=== PATIENT | female | born 1975 | race Caucasian/White ===

== ENCOUNTER 2018-11-29 20:38 | Emergency (ER) | payer BC ==
[2018-11-29] MEDS ORDERED: 0.9 % SODIUM CHLORIDE 1,000 ML BAG IV ONE (21:03)
[2018-11-29] MEDS ORDERED: KETOROLAC 30 MG/ML VIAL IVP ONE (21:03)
[2018-11-29] MEDS ORDERED: DIPHENHYDRAMINE HCL 50 MG/ML VIAL IVP ONE (21:03)
[2018-11-29] MEDS ORDERED: METOCLOPRAMIDE HCL 10 MG/2 ML VIAL IVP ONE (21:03)
--- NOTE | 2018-11-29 21:05 | Emergency Department Record ---
History of Present Illness - General Chief Complaint: Headache Migraine Stated Complaint: MIGRAINE Time Seen by Provider: 11/29/18 20:45 Source: Patient Mode of Arrival: Ambulatory - History of Present Illness Initial Comments: The patient has a history of recurring migraine headaches usually controlled with excedrin migraine and imetrex. This current headache has been low grade for 3-4 days. Today it gradually increased into a full blown mirgraine around noon. She took 7 excedrin migraine pills, and an imetrex with no relief. She went to her usual emergency department which was on diversion, so she came here. nHer headache is bitemporal, andis associated with photophobia, nausea, and photophonia. This is her typical migraine for her. She denies other symptoms such as fevers, chills, stiff neck, rashes, unilateral weakness, altered speech or other complaints. Onset/Timin -: Hour(s) Onset Description: Gradual Location: Left, Right, Temporal Severity scale (1-10): 8 Quality: Aching, Similar to previous headaches Consistency: Constant, Getting worse Improves With: Nothing Worsens With: Light, Noise Associated Symptoms: Photophobia Treatments Prior to Arrival: Migraine medication - Related Data Home Medications Medication Instructions Recorded Confirmed Last Taken Bupropion HCl [Wellbutrin Xl] 300 mg PO DAILY 11/29/18 11/29/18 11/29/18 Dextroamphetamine/Amphetamine 40 mg PO DAILY 11/29/18 11/29/18 11/29/18 [Adderall Xr 20 mg Capsule] Rivaroxaban [Xarelto] 20 mg PO DAILY 11/29/18 11/29/18 11/29/18 Sumatriptan Succinate [Imitrex] 10 mg PO DAILY PRN 11/29/18 11/29/18 11/29/18 Triamterene/Hydrochlorothiazid 1 each PO DAILY 11/29/18 11/29/18 11/29/18 [Dyazide 37.5-25 Capsule] Allergies Allergy/AdvReac Type Severity Reaction Status Date / Time nitrofurantoin Allergy HIVES Verified 11/29/18 20:48 [From Macrobid] Travel Screening - Travel/Exposure Within Last 30 Days Have you traveled within the last 30 days?: No Review of Systems Reviewed: No additional complaints except as noted below Constitutional: Reports: As per HPI. Denies: Chills, Fever, Malaise, Night sweats, Weakness, Weight change Eyes: Reports: As per HPI. Denies: Eye discharge, Eye pain, Photophobia, Vision change ENT: Reports: As per HPI. Denies: Congestion, Dental pain, Ear pain, Epistaxis, Hearing loss, Throat pain Respiratory: Reports: As per HPI. Denies: Cough, Dyspnea, Hemoptysis, Stridor, Wheezes Cardiovascular: Reports: As per HPI. Denies: Arrhythmia, Chest pain, Dyspnea on exertion, Edema, Murmurs, Orthopnea, Palpitations, Paroxysmal nocturnal dyspnea, Rheumatic Fever, Syncope Endocrine: Reports: As per HPI. Denies: Fatigue, Heat or cold intolerance, Polydipsia, Polyuria Gastrointestinal: Reports: As per HPI. Denies: Abdominal pain, Constipation, Diarrhea, Hematemesis, Hematochezia, Melena, Nausea, Vomiting Genitourinary: Reports: As per HPI. Denies: Abnormal menses, Discharge, Dyspareunia, Dysuria, Frequency, Hematuria, Incontinence, Retention, Urgency Musculoskeletal: Reports: As per HPI. Denies: Arthralgia, Back pain, Gout, Join t swelling, Myalgia, Neck pain Skin: Reports: As per HPI. Denies: Bruising, Change in color, Change in hair/nails, Lesions, Pruritus, Rash Neurological: Reports: As per HPI. Denies: Abnormal gait, Confusion, Headache, Numbness, Paresthesias, Seizure, Tingling, Tremors, Vertigo, Weakness Psychiatric: Reports: As per HPI. Denies: Anxiety, Auditory hallucinations, Depression, Homicidal thoughts, Suicidal thoughts, Visual hallucinations Hematological/Lymphatic: Reports: As per HPI. Denies: Anemia, Blood Clots, Easy bleeding, Easy bruising, Swollen glands Past Medical History - SOCIAL HISTORY Smoking Status: Never smoker Alcohol Use: Occasional Drug Use: Occasional - RESPIRATORY Hx Respiratory Disorders: No - CARDIOVASCULAR Hx Cardio Disorders: No - NEURO Hx Neuro Disorders: Yes Hx Headaches: Yes (migraines) - GI Hx GI Disorders: No Comment:: portal vein thrombosis - Hx Genitourinary Disorders: No - ENDOCRINE Hx Endocrine Disorders: No - MUSCULOSKELETAL Hx Musculoskeletal Disorders: No - PSYCH Hx Psych Problems: Yes Hx Anxiety: Yes - HEMATOLOGY/ONCOLOGY Hx Hematology/Oncology Disorders: Yes Hx Clotting Problems: Yes (portal vein thrombosis) Family Medical History Any Significant Family History?: Yes Family Hx Comment (NOT TO BE USED IN PLACE OF ITEMS BELOW): Father-DVT Hx Cancer: Grandparents Hx Stroke: Grandparents Physical Exam - General General Appearance: Alert, Oriented x3, Cooperative, Moderate distress, Other (laying in dark room wearing sunglasses, conversive with a quiet voice) - Head Head exam: Normal inspection - Eye Eye exam: Normal appearance, PERRL Pupils: Normal accommodation - ENT ENT exam: Normal exam, Mucous membranes dry, Normal external ear exam, Normal orophraynx, TM's normal bilaterally Ear exam: Normal external inspection. negative: External canal tenderness Nasal Exam: Normal inspection. negative: Discharge, Sinus tenderness Mouth exam: Normal external inspection, Tongue normal Teeth exam: Normal inspection. negative: Dental caries Throat exam: Normal inspection. negative: Tonsillar erythema, Tonsillar exudate - Neck Neck exam: Normal inspection, Full ROM, Other (neck supple). negative: Lymphadenopathy, Meningismus, Tenderness - Respiratory Respiratory exam: Normal lung sounds bilaterally. negative: Respiratory distress - Cardiovascular Cardiovascular Exam: Regular rate, Normal rhythm, Normal heart sounds - GI/Abdominal GI/Abdominal exam: Soft, Normal bowel sounds. negative: Tenderness - Rectal Rectal exam: Deferred - exam: Deferred - Extremities Extremities exam: Normal inspection, Full ROM, Normal capillary refill. negative: Calf tenderness, Pedal edema, Tenderness - Back Back exam: Reports: Normal inspection, Full ROM. Denies: Muscle spasm, Rash noted, Tenderness - Neurological Neurological exam: Alert, CN II-XII intact, Normal gait, Oriented X3, Reflexes normal. negative: Altered, Motor sensory deficit - Psychiatric Psychiatric exam: Normal affect, Normal mood - Skin Skin exam: Dry, Intact, Normal color, Warm Course Vital Signs 11/29/18 20:43 Temperature 97.5 F L Pulse Rate 71 Respiratory 18 Rate Blood Pressure 175/110 Pulse Ox 99 - Reevaluation(s) Reevaluation #1: 11/29/18 21:55 Medications and fluids infusing. Reevaluation #2: 11/29/18 22:16 IV infiltrated after medications infused and 150ccNS completed. Her left arm is swollen and a warm blanket pressure cover was applied.Patient states, however, that her headache is much improved and she is ready to be discharged home nonetheless. Her headache initially was 9/10 and now is 4.5/10. She will orally hydrate and go home to sleep. 11/29/18 22:20 Medical Decision Making - Management Options MDM Management: No Additional Work-up Planned Disposition Disposition: Discharge Clinical Impression: Migraine headache Qualifiers: Migraine type: without aura Status migrainosus presence: without status migrainosus Intractability: not intractable Qualified Code(s): G43.009 - Migraine without aura, not intractable, without status migrainosus Intravenous infiltration Qualifiers: Encounter type: initial encounter Qualified Code(s): T80.1XXA - Vascular complications following infusion, transfusion and therapeutic injection, initial encounter Disposition: Home, Self-Care Condition: (1) Good Instructions: Migraine Headache (ED) Additional Instructions: Home to bed. Do not drive tonight. Continue present medications. Follow up with PCP as needed. Ice/heat to infiltrated site as needed. The area may bruise. Forms: Patient Portal Access Quality - Quality Measures Quality Measures: Headache (All Ages) - Headache: Neuroimaging Quality Measure: Measure #419: Overuse of Neuroimaging ICD10 Codes Entered: Yes Neurological Exam: Patient had a normal neurological exam. [G9535] Headache: Use of Neuroimaging: < CTA, CT, MRA or MRI was NOT ordered > [G9534] Medical Reason for Exam: Other - Blood Pressure Screening Does Patient Have Any of the Following: No Blood Pressure Classification: Hypertensive Reading Systolic Measurement: 175 Diastolic Measurement: 110 Screening for High Blood Pressure: < Normal BP, F/U Not Required > [G8783]
== END 2018-11-29 22:23 | disposition home or self-care (01) ==
LOC: ER 20:38
DX: G43.009 Migraine without aura, not intractable, without status migrainosus (principal); T80.1XXA Vascular complications following infusion, transfusion and therapeutic injection, initial encounter; H53.149 Visual discomfort, unspecified; R11.0 Nausea; Y82.8 Other medical devices associated with adverse incidents; Y92.230 Patient room in hospital as the place of occurrence of the external cause
CPT/HCPCS: 99284 ×2; 96374; 96375; J1885; J1200; J2765

== ENCOUNTER 2018-12-06 16:57 | Emergency (ER) | payer BC ==
[2018-12-06] MEDS ORDERED: DIPHENHYDRAMINE HCL 50 MG/ML VIAL IVP ONE (17:23)
[2018-12-06] MEDS ORDERED: KETOROLAC 30 MG/ML VIAL IVP ONE (17:23)
--- NOTE | 2018-12-06 17:25 | Emergency Department Record ---
History of Present Illness - General Chief Complaint: Headache Migraine Stated Complaint: MIGRAINE Time Seen by Provider: 12/06/18 17:20 Source: Patient Mode of Arrival: Ambulatory Limitations: No limitations - History of Present Illness Initial Comments: Pt with hx migraine presents with CALDERÓN. Took Imitrex 25 mg twice today without relief. CALDERÓN is frontal with mild nausea. Not worst of life. No fever. No weakness. Onset/Timin -: Days(s) Severity: Moderate Severity scale (1-10): 8 Quality: Aching Consistency: Intermittent Improves With: Nothing Worsens With: None Treatments Prior to Arrival: Migraine medication - Related Data Allergies Allergy/AdvReac Type Severity Reaction Status Date / Time nitrofurantoin Allergy HIVES Verified 11/29/18 20:48 [From Macrobid] Travel Screening - Travel/Exposure Within Last 30 Days Have you traveled within the last 30 days?: No Review of Systems Constitutional: Denies: Chills, Fever Eyes: Reports: Photophobia. Denies: Eye discharge ENT: Denies: Congestion, Throat pain Respiratory: Denies: Cough Cardiovascular: Denies: Arrhythmia, Syncope Endocrine: Denies: Fatigue Gastrointestinal: Reports: Nausea. Denies: Abdominal pain Musculoskeletal: Denies: Arthralgia Neurological: Reports: As per HPI, Headache. Denies: Abnormal gait Psychiatric: Denies: Anxiety Past Medical History - SOCIAL HISTORY Smoking Status: Never smoker Alcohol Use: Occasional Drug Use: None - RESPIRATORY Hx Respiratory Disorders: No - CARDIOVASCULAR Hx Cardio Disorders: No - NEURO Hx Neuro Disorders: Yes Hx Headaches: Yes (migraines) - GI Hx GI Disorders: No Comment:: portal vein thrombosis - Hx Genitourinary Disorders: No - ENDOCRINE Hx Endocrine Disorders: No - MUSCULOSKELETAL Hx Musculoskeletal Disorders: No - PSYCH Hx Psych Problems: Yes Hx Anxiety: Yes - HEMATOLOGY/ONCOLOGY Hx Hematology/Oncology Disorders: Yes Hx Clotting Problems: Yes (portal vein thrombosis) Family Medical History Any Significant Family History?: Yes Family Hx Comment (NOT TO BE USED IN PLACE OF ITEMS BELOW): Father-DVT Hx Cancer: Grandparents Hx Stroke: Grandparents Physical Exam - General General Appearance: Alert, Oriented x3, Cooperative, No acute distress - Head Head exam: Normal inspection - Eye Eye exam: Normal appearance, PERRL - ENT ENT exam: Normal exam, Mucous membranes moist, Normal external ear exam, Normal orophraynx, TM's normal bilaterally - Neck Neck exam: Normal inspection, Full ROM. negative: Tenderness - Respiratory Respiratory exam: Normal lung sounds bilaterally. negative: Respiratory distress - Cardiovascular Cardiovascular Exam: Regular rate, Normal rhythm, Normal heart sounds - GI/Abdominal GI/Abdominal exam: Soft, Normal bowel sounds. negative: Tenderness - Extremities Extremities exam: Normal inspection - Back Back exam: Reports: Normal inspection - Neurological Neurological exam: Alert, Normal gait, Oriented X3. negative: Motor sensory deficit - Psychiatric Psychiatric exam: Normal affect, Normal mood - Skin Skin exam: Normal color. negative: Rash Course Vital Signs 12/06/18 17:12 Temperature 97.8 F Pulse Rate 71 Respiratory 12 Rate Blood Pressure 147/96 Pulse Ox 99 - Reevaluation(s) Reevaluation #1: 12/06/18 18:31 Much improved with IV meds. CALDERÓN gone. Discussed plan and pt and agree. Home Disposition Disposition: Discharge Clinical Impression: Migraine Qualifiers: Migraine type: with aura Status migrainosus presence: without status migrainosus Intractability: not intractable Qualified Code(s): G43.109 - Migraine with aura, not intractable, without status migrainosus Disposition: Home, Self-Care Condition: (1) Good Instructions: Migraine Headache (ED) Additional Instructions: See you family doctor for discussion of Migraine treatments. Possible Neuro eval in office. Return to the ED at any time. Forms: Patient Portal Access Time of Disposition: 18:32 Quality - Quality Measures Quality Measures: N/A, Headache (All Ages) - Headache: Neuroimaging Quality Measure: Measure #419: Overuse of Neuroimaging ICD10 Codes Entered: Yes Neurological Exam: Patient had a normal neurological exam. [G9535] Headache: Use of Neuroimaging: < CTA, CT, MRA or MRI was NOT ordered > [G9534] - Blood Pressure Screening Does Patient Have Any of the Following: No Blood Pressure Classification: Hypertensive Reading Systolic Measurement: 147 Diastolic Measurement: 96 Screening for High Blood Pressure: < Pre-Hypertensive BP, F/U Documented > [G8950] Pre-Hypertensive Follow-up Interventions: Follow-up with rescreen every year.
== END 2018-12-06 18:45 | disposition home or self-care (01) ==
LOC: ER 16:57
DX: G43.909 Migraine, unspecified, not intractable, without status migrainosus (principal); R11.0 Nausea
CPT/HCPCS: 96374; 96375; 99283; J1200; J1885

== ENCOUNTER 2019-01-28 19:53 | Emergency (ER) | payer BC ==
[2019-01-28] MEDS ORDERED: 0.9 % SODIUM CHLORIDE 1,000 ML BAG IV ONE (20:32)
[2019-01-28 21:00] LABS: ABSOLUTE NEUTROPHIL COUNT 6.77; BASO % 1.1 % (0-6); EOS % 1.9 % (0-6); GRAN % 59.2 % (47-80); HEMATOCRIT 36.3 % (35.0-47.0); HEMOGLOBIN 12.1 gm/dl (11.6-16.0); MEAN CELL VOLUME 81.4 fl (81-97); MEAN CORPUSCULAR HEMOGLOBIN 27.1 pg (27-33); MEAN CORPUSCULAR HGB CONC 33.3 g/dl (32-36); MEAN PLATELET VOLUME 9.5 fl (7.4-10.4); MONO % 10.8 % (0-9); RED BLOOD COUNT 4.46 M/uL (3.80-5.40); RED CELL DISTRIBUTION WIDTH 15.6 % (11.5-14.5); WHITE BLOOD COUNT W/O DIFF 11.4 K/uL (4.2-12.2)
[2019-01-28 21:05] LABS: URINE APPEARANCE CLEAR; URINE BILIRUBIN NEGATIVE (NEGATIVE); URINE BLOOD NEGATIVE (NEGATIVE); URINE COLOR YELLOW; URINE GLUCOSE (UA) NEGATIVE (NEGATIVE); URINE KETONE NEGATIVE (NEGATIVE); URINE LEUKOCYTE ESTERASE NEGATIVE (NEGATIVE); URINE NITRITE NEGATIVE (NEGATIVE); URINE PROTEIN NEGATIVE (NEGATIVE)
[2019-01-28 21:14] LABS: BLOOD UREA NITROGEN 23 mg/dL (6-20); CREATININE 0.9 mg/dL (0.5-0.9); EST GLOMERULAR FILTRATION RATE > 60 mL/min; LIPASE 59 U/L (13-60); TOTAL PROTEIN 6.9 g/dL (6.6-8.7)
[2019-01-28 21:16] LABS: GLUCOSE,RANDOM 94 mg/dL (74-109)
[2019-01-28 21:19] LABS: ALB/GLOB RATIO 1.4 (1.1-1.8); ALKALINE PHOSPHATASE 100 U/L (35-104); ALT/SGPT 12 U/L (<33); AST/SGOT 15 U/L (10.0-35.0)
[2019-01-28 21:21] LABS: PLATELET COUNT 679 K/uL (130-400)
[2019-01-28] MEDS ORDERED: POTASSIUM CHLORIDE 20 MEQ TABLET PO ONE (21:54)
--- NOTE | 2019-01-28 22:02 | Emergency Department Record ---
History of Present Illness - General Chief Complaint: Abdominal Pain Stated Complaint: BLOATING/L SIDE PAIN/CONSTIPATION Time Seen by Provider: 01/28/19 20:25 Source: Patient Mode of Arrival: Ambulatory Limitations: No limitations - History of Present Illness Initial Comments: pt has not had a bm in 14 days. she has abd pain in the llq. she has no n/v/d MD Complaint: Abdominal pain Onset/Timin -: Days(s) Location: LLQ Radiation: None Severity scale (1-10): 3 Quality: Cramping, Fullness Improves With: Movement Worsens With: Nothing Associated Symptoms: Constipation - Related Data Patient : No Home Medications Medication Instructions Recorded Confirmed Last Taken Butalbital/Aspirin/Caffeine 1 - 2 cap PO ASDIR PRN 01/28/19 01/28/19 2 Days Ago [Fiorinal 50-325-40 mg Capsule] ~01/26/19 Allergies Allergy/AdvReac Type Severity Reaction Status Date / Time nitrofurantoin Allergy HIVES Verified 01/28/19 20:20 [From Macrobid] Travel Screening - Travel/Exposure Within Last 30 Days Have you traveled within the last 30 days?: No - Travel/Exposure Within Last Year Have you traveled outside the [place] in the last year?: No - Additonal Travel Details Have you been exposed to anyone with a communicable illness?: No - Travel Symptoms Symptom Screening: None Review of Systems Reviewed: No additional complaints except as noted below Constitutional: Reports: As per HPI. Denies: Chills, Fever, Malaise, Night sweats, Weakness, Weight change Eyes: Reports: As per HPI. Denies: Eye discharge, Eye pain, Photophobia, Vision change ENT: Reports: As per HPI. Denies: Congestion, Dental pain, Ear pain, Epistaxis, Hearing loss, Throat pain Respiratory: Reports: As per HPI. Denies: Cough, Dyspnea, Hemoptysis, Stridor, Wheezes Cardiovascular: Reports: As per HPI. Denies: Arrhythmia, Chest pain, Dyspnea on exertion, Edema, Murmurs, Orthopnea, Palpitations, Paroxysmal nocturnal dyspnea, Rheumatic Fever, Syncope Endocrine: Reports: As per HPI. Denies: Fatigue, Heat or cold intolerance, Polydipsia, Polyuria Gastrointestinal: Reports: As per HPI, Abdominal pain, Constipation. Denies: Diarrhea, Hematemesis, Hematochezia, Melena, Nausea, Vomiting Genitourinary: Reports: As per HPI. Denies: Abnormal menses, Discharge, Dyspareunia, Dysuria, Frequency, Hematuria, Incontinence, Retention, Urgency Musculoskeletal: Reports: As per HPI. Denies: Arthralgia, Back pain, Gout, Joint swelling, Myalgia, Neck pain Skin: Reports: As per HPI. Denies: Bruising, Change in color, Change in hair/nails, Lesions, Pruritus, Rash Neurological: Reports: As per HPI. Denies: Abnormal gait, Confusion, Headache, Numbness, Paresthesias, Seizure, Tingling, Tremors, Vertigo, Weakness Psychiatric: Reports: As per HPI. Denies: Anxiety, Auditory hallucinations, Depression, Homicidal thoughts, Suicidal thoughts, Visual hallucinations Hematological/Lymphatic: Reports: As per HPI. Denies: Anemia, Blood Clots, Easy bleeding, Easy bruising, Swollen glands Past Medical History - SOCIAL HISTORY Smoking Status: Never smoker Alcohol Use: Occasional Drug Use: None - RESPIRATORY Hx Respiratory Disorders: No - CARDIOVASCULAR Hx Cardio Disorders: No - NEURO Hx Neuro Disorders: Yes Hx Headaches: Yes (migraines) - GI Hx GI Disorders: No Hx Wt Loss/Wt Gain: Yes (gastric sleeve) Comment:: portal vein thrombosis - Hx Genitourinary Disorders: No - ENDOCRINE Hx Endocrine Disorders: No - MUSCULOSKELETAL Hx Musculoskeletal Disorders: No - PSYCH Hx Psych Problems: Yes Hx Anxiety: Yes Hx Depression: Yes - HEMATOLOGY/ONCOLOGY Hx Hematology/Oncology Disorders: Yes Hx Clotting Problems: Yes (portal vein thrombosis) Family Medical History Any Significant Family History?: Yes Family Hx Comment (NOT TO BE USED IN PLACE OF ITEMS BELOW): Father-DVT Hx Cancer: Grandparents Hx Diabetes: Father Hx Stroke: Grandparents Physical Exam - General General Appearance: Alert, Oriented x3, Cooperative, Mild distress - Head Head exam: Normal inspection - Eye Eye exam: Normal appearance, PERRL, EOMI Pupils: Normal accommodation - ENT ENT exam: Normal exam, Mucous membranes moist, Normal external ear exam, Normal orophraynx Ear exam: Normal external inspection. negative: External canal tenderness Nasal Exam: Normal inspection. negative: Discharge, Sinus tenderness Mouth exam: Normal external inspection, Tongue normal Teeth exam: Normal inspection. negative: Dental caries Throat exam: Normal inspection. negative: Tonsillar erythema, Tonsillar exudate - Neck Neck exam: Normal inspection, Full ROM. negative: Tenderness - Respiratory Respiratory exam: Normal lung sounds bilaterally. negative: Respiratory distress - Cardiovascular Cardiovascular Exam: Regular rate, Normal rhythm, Normal heart sounds - GI/Abdominal GI/Abdominal exam: Soft, Normal bowel sounds, Tenderness (llq) - Rectal Rectal exam: Deferred - exam: Deferred - Extremities Extremities exam: Normal inspection, Full ROM, Normal capillary refill. negative: Tenderness - Back Back exam: Reports: Normal inspection, Full ROM. Denies: Muscle spasm, Rash noted, Tenderness - Neurological Neurological exam: Alert, CN II-XII intact, Normal gait, Oriented X3 - Psychiatric Psychiatric exam: Normal affect, Normal mood - Skin Skin exam: Dry, Intact, Normal color, Warm Course Vital Signs 01/28/19 01/28/19 20:04 21:26 Temperature 98.2 F Pulse Rate [ 85 70 Pulse Ox Probe] Respiratory 20 16 Rate Blood Pressure 127/81 113/76 [Left Arm] Pulse Ox 100 98 - Reevaluation(s) Reevaluation #1: 01/28/19 23:40 ct shows icreased stool withdecreased amt distally. i discussed need for colonoscopy. enema produced scant results. pt given mag citrate and told need for GI follow up Medical Decision Making - Lab Data Result diagrams: 01/28/19 20:50 01/28/19 20:50 Lab Results 01/28/19 01/28/19 01/28/19 Range/Units 20:50 20:50 20:50 WBC 11.4 (4.2-12.2) K/uL RBC 4.46 (3.80-5.40) M/uL Hgb 12.1 (11.6-16.0) gm/dl Hct 36.3 (35.0-47.0) % MCV 81.4 (81-97) fl MCH 27.1 (27-33) pg MCHC 33.3 (32-36) g/dl RDW 15.6 H (11.5-14.5) % Plt Count 679 H (130-400) K/uL MPV 9.5 (7.4-10.4) fl Gran % 59.2 (47-80) % Lymphocytes % 27.0 (16-45) % Monocytes % 10.8 H (0-9) % Eosinophils % 1.9 (0-6) % Basophils % 1.1 (0-6) % Absolute Neutrophils 6.77 Sodium 138 (136-145) mmol/L Potassium 2.9 L* (3.4-4.5) mmol/L Chloride 100 (98-107) mmol/L Carbon Dioxide 27.0 (22-29) mmol/L Anion Gap 11.0 (7-16) BUN 23 H (6-20) mg/dL Creatinine 0.9 (0.5-0.9) mg/dL Estimated GFR > 60 mL/min Random Glucose 94 (74-109) mg/dL Calcium 10.4 H (8.6-10.0) mg/dL Total Bilirubin 0.40 (0.2-1.0) mg/dL AST 15 (10.0-35.0) U/L ALT 12 (<33) U/L Alkaline Phosphatase 100 (35-104) U/L Total Protein 6.9 (6.6-8.7) g/dL Albumin 4.0 (4.0-5.0) g/dL Globulin 2.9 (1.4-4.8) gm/dL Albumin/Globulin Ratio 1.4 (1.1-1.8) Lipase 59 (13-60) U/L Urine Color Yellow Urine Appearance Clear Urine pH 6.0 (5.0-8.0) Ur Specific [place] 1.025 (1.002-1.030) Urine Protein Negative (NEGATIVE) Urine Glucose (UA) Negative (NEGATIVE) Urine Ketones Negative (NEGATIVE) Urine Blood Negative (NEGATIVE) Urine Nitrite Negative (NEGATIVE) Urine Bilirubin Negative (NEGATIVE) Urine Urobilinogen 4.0 H (0.20 - 1.00) E.U./dL Ur Leukocyte Esterase Negative (NEGATIVE) Disposition Disposition: Discharge Clinical Impression: Hypokalemia Constipation Qualifiers: Constipation type: unspecified constipation type Qualified Code(s): K59.00 - Constipation, unspecified Disposition: Home, Self-Care Condition: (1) Good Instructions: Constipation (ED) Additional Instructions: follow up with family doctor and with GI doctor. return sooner if worse. drink half of prashant tonight with a glass of water then drink other half in the morning with a glass of water Forms: Patient Portal Access Quality - Quality Measures Quality Measures: N/A - Blood Pressure Screening Does Patient Have Any of the Following: No Blood Pressure Classification: Normal BP Reading Systolic Measurement: 113 Diastolic Measurement: 76 Screening for High Blood Pressure: < Normal BP, F/U Not Required > [G8721]
[2019-01-28] MEDS ORDERED: POTASSIUM CHL 20MEQ IN 1L NS 20 MEQ/1,000 ML BAG IV ONE (22:25)
[2019-01-28] MEDS ORDERED: MAGNESIUM CITRATE 296 ML BTL PO ONE (23:38)
--- NOTE | 2019-01-29 00:03 | Emergency Department Record ---
History of Present Illness - General Chief Complaint: Abdominal Pain Stated Complaint: BLOATING/L SIDE PAIN/CONSTIPATION Time Seen by Provider: 01/28/19 20:25 Source: Patient Mode of Arrival: Ambulatory Limitations: No limitations - History of Present Illness MD Complaint: Abdominal pain Onset/Timin -: Days(s) Location: LLQ Radiation: None Severity scale (1-10): 3 Quality: Cramping, Fullness Improves With: Movement Worsens With: Nothing Associated Symptoms: Constipation - Related Data Patient : No Home Medications Medication Instructions Recorded Confirmed Last Taken Butalbital/Aspirin/Caffeine 1 - 2 cap PO ASDIR PRN 01/28/19 01/28/19 2 Days Ago [Fiorinal 50-325-40 mg Capsule] ~01/26/19 Allergies Allergy/AdvReac Type Severity Reaction Status Date / Time nitrofurantoin Allergy HIVES Verified 01/28/19 20:20 [From Macrobid] Travel Screening - Travel/Exposure Within Last 30 Days Have you traveled within the last 30 days?: No - Travel/Exposure Within Last Year Have you traveled outside the [place] in the last year?: No - Additonal Travel Details Have you been exposed to anyone with a communicable illness?: No - Travel Symptoms Symptom Screening: None Review of Systems Constitutional: Reports: As per HPI. Denies: Chills, Fever, Malaise, Night sweats, Weakness, Weight change Eyes: Reports: As per HPI. Denies: Eye discharge, Eye pain, Photophobia, Vision change ENT: Reports: As per HPI. Denies: Congestion, Dental pain, Ear pain, Epistaxis, Hearing loss, Throat pain Respiratory: Reports: As per HPI. Denies: Cough, Dyspnea, Hemoptysis, Stridor, Wheezes Cardiovascular: Reports: As per HPI. Denies: Arrhythmia, Chest pain, Dyspnea on exertion, Edema, Murmurs, Orthopnea, Palpitations, Paroxysmal nocturnal dyspnea, Rheumatic Fever, Syncope Endocrine: Reports: As per HPI. Denies: Fatigue, Heat or cold intolerance, Polydipsia, Polyuria Gastrointestinal: Reports: As per HPI, Abdominal pain, Constipation. Denies: Diarrhea, Hematemesis, Hematochezia, Melena, Nausea, Vomiting Genitourinary: Reports: As per HPI. Denies: Abnormal menses, Discharge, Dyspareunia, Dysuria, Frequency, Hematuria, Incontinence, Retention, Urgency Musculoskeletal: Reports: As per HPI. Denies: Arthralgia, Back pain, Gout, Joint swelling, Myalgia, Neck pain Skin: Reports: As per HPI. Denies: Bruising, Change in color, Change in hair/nails, Lesions, Pruritus, Rash Neurological: Reports: As per HPI. Denies: Abnormal gait, Confusion, Headache, Numbness, Paresthesias, Seizure, Tingling, Tremors, Vertigo, Weakness Psychiatric: Reports: As per HPI. Denies: Anxiety, Auditory hallucinations, Depression, Homicidal thoughts, Suicidal thoughts, Visual hallucinations Hematological/Lymphatic: Reports: As per HPI. Denies: Anemia, Blood Clots, Easy bleeding, Easy bruising, Swollen glands Past Medical History - SOCIAL HISTORY Smoking Status: Never smoker Alcohol Use: Occasional Drug Use: None - RESPIRATORY Hx Respiratory Disorders: No - CARDIOVASCULAR Hx Cardio Disorders: No - NEURO Hx Neuro Disorders: Yes Hx Headaches: Yes (migraines) - GI Hx GI Disorders: No Hx Wt Loss/Wt Gain: Yes (gastric sleeve) Comment:: portal vein thrombosis - Hx Genitourinary Disorders: No - ENDOCRINE Hx Endocrine Disorders: No - MUSCULOSKELETAL Hx Musculoskeletal Disorders: No - PSYCH Hx Psych Problems: Yes Hx Anxiety: Yes Hx Depression: Yes - HEMATOLOGY/ONCOLOGY Hx Hematology/Oncology Disorders: Yes Hx Clotting Problems: Yes (portal vein thrombosis) Family Medical History Any Significant Family History?: Yes Family Hx Comment (NOT TO BE USED IN PLACE OF ITEMS BELOW): Father-DVT Hx Cancer: Grandparents Hx Diabetes: Father Hx Stroke: Grandparents Physical Exam - General Limitations: No limitations Course Vital Signs 01/28/19 01/28/19 20:04 21:26 Temperature 98.2 F Pulse Rate [ 85 70 Pulse Ox Probe] Respiratory 20 16 Rate Blood Pressure 127/81 113/76 [Left Arm] Pulse Ox 100 98 Medical Decision Making - Lab Data Result diagrams: 01/28/19 20:50 01/28/19 20:50 Lab Results 01/28/19 01/28/19 01/28/19 Range/Units 20:50 20:50 20:50 WBC 11.4 (4.2-12.2) K/uL RBC 4.46 (3.80-5.40) M/uL Hgb 12.1 (11.6-16.0) gm/dl Hct 36.3 (35.0-47.0) % MCV 81.4 (81-97) fl MCH 27.1 (27-33) pg MCHC 33.3 (32-36) g/dl RDW 15.6 H (11.5-14.5) % Plt Count 679 H (130-400) K/uL MPV 9.5 (7.4-10.4) fl Gran % 59.2 (47-80) % Lymphocytes % 27.0 (16-45) % Monocytes % 10.8 H (0-9) % Eosinophils % 1.9 (0-6) % Basophils % 1.1 (0-6) % Absolute Neutrophils 6.77 Sodium 138 (136-145) mmol/L Potassium 2.9 L* (3.4-4.5) mmol/L Chloride 100 (98-107) mmol/L Carbon Dioxide 27.0 (22-29) mmol/L Anion Gap 11.0 (7-16) BUN 23 H (6-20) mg/dL Creatinine 0.9 (0.5-0.9) mg/dL Estimated GFR > 60 mL/min Random Glucose 94 (74-109) mg/dL Calcium 10.4 H (8.6-10.0) mg/dL Total Bilirubin 0.40 (0.2-1.0) mg/dL AST 15 (10.0-35.0) U/L ALT 12 (<33) U/L Alkaline Phosphatase 100 (35-104) U/L Total Protein 6.9 (6.6-8.7) g/dL Albumin 4.0 (4.0-5.0) g/dL Globulin 2.9 (1.4-4.8) gm/dL Albumin/Globulin Ratio 1.4 (1.1-1.8) Lipase 59 (13-60) U/L Urine Color Yellow Urine Appearance Clear Urine pH 6.0 (5.0-8.0) Ur Specific [place] 1.025 (1.002-1.030) Urine Protein Negative (NEGATIVE) Urine Glucose (UA) Negative (NEGATIVE) Urine Ketones Negative (NEGATIVE) Urine Blood Negative (NEGATIVE) Urine Nitrite Negative (NEGATIVE) Urine Bilirubin Negative (NEGATIVE) Urine Urobilinogen 4.0 H (0.20 - 1.00) E.U./dL Ur Leukocyte Esterase Negative (NEGATIVE) Disposition Clinical Impression: Hypokalemia Constipation Qualifiers: Constipation type: unspecified constipation type Qualified Code(s): K59.00 - Constipation, unspecified Disposition: Home, Self-Care Condition: (1) Good Instructions: Constipation (ED) Additional Instructions: follow up with family doctor and with GI doctor. return sooner if worse. drink half of mag citrate tonight with a glass of water then drink other half in the morning with a glass of water Forms: Patient Portal Access Quality - Quality Measures Quality Measures: N/A - Blood Pressure Screening Does Patient Have Any of the Following: No Blood Pressure Classification: Normal BP Reading Systolic Measurement: 113 Diastolic Measurement: 76 Screening for High Blood Pressure: < Normal BP, F/U Not Required > [G8783]
--- NOTE | 2019-01-30 21:08 | CT SCAN REPORT ---
EXAM: CT SCAN ABDOMEN/PELVIS WO CONTRAST HISTORY: LEFT LOWER QUADRANT ABDOMINAL PAIN, CONSTIPATED. PRIOR SPLENECTOMY, CHOLECYSTECTOMY, AND GASTRIC SLEEVE. TECHNIQUE: Axial CT scan of the abdomen and pelvis performed without oral or IV contrast at the referring physician's request. COMPARISON: None. FINDINGS: Post-op changes seen along the stomach consistent with the history of prior gastric surgery. Surgical clips in the gallbladder fossa consistent with cholecystectomy and the spleen not identified consistent with the surgical history as well. There is probably a very tiny residual splenule in the left upper quadrant posteriorly containing a small amount of calcification. There has probably also been a prior anterior abdominal wall hernia repair with a metallic mesh-like density seen along the anterior abdominal wall. Single tiny nonobstructing calculus lower pole left kidney. None seen on the right. No hydronephrosis or hydroureter on either side. As such the ureters are somewhat difficult to follow in their nondilated state throughout the retroperitoneum and pelvis but no definite ureteral calculus seen on either side and no bladder calculus evident. Uterus not well seen and may be surgically absent as well and correlation with the surgical history is suggested. Evaluation of the bowel and viscera extremely limited without oral or IV contrast. Given this limitation, no definite hepatic, adrenal, pancreatic, or renal mass identified. 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 There is prominent stool seen in the colon from the level of the cecum down into the sigmoid colon. However, the majority of the sigmoid colon and the rectum have very little stool. At the point of relative transition in stool content in the colon, there is no obvious mass identified and the significance of this disparity in stool volume proximal and distal to the level of the upper sigmoid is not clear. Follow-up colonoscopy may be useful, given the history of no bowel movement in 14 days. I believe the appendix is identified of normal caliber with no appendicitis evident. Tiny umbilical hernia containing adipose tissue but no bowel. No definite free intraperitoneal air or free intraperitoneal fluid identified. Prominent facet joint arthropathy in the lower lumbar spine. Some spurring, particularly in the lower thoracic spine. IMPRESSION: 1. FAIRLY EXTENSIVE POSTOPERATIVE FINDINGS INCLUDING SPLENECTOMY, CHOLECYSTECTOMY, GASTRIC SURGERY, ANTERIOR ABDOMINAL WALL HERNIA REPAIR, AND PROBABLY ALSO HYSTERECTOMY. CORRELATION WITH THE SURGICAL HISTORY IS SUGGESTED. 2. SINGLE TINY NONOBSTRUCTING CALCULUS LEFT KIDNEY WITH NO HYDRONEPHROSIS OR URETERAL CALCULUS ON EITHER SIDE. 3. PROMINENT STOOL IN THE COLON FROM THE LEVEL OF THE CECUM TO THE UPPER SIGMOID. VERY LITTLE STOOL BEYOND THE UPPER SIGMOID. NO OBVIOUS OBSTRUCTING MASS AT THIS POINT OF TRANSITION IN STOOL VOLUME AND THE SIGNIFICANCE OF THIS IS UNCERTAIN. GIVEN THE HISTORY OF RELATIVELY PROMINENT CONSTIPATION WITH NO BOWEL MOVEMENT IN 14 DAYS, FOLLOW-UP COLONOSCOPY MAY BE USEFUL. 4. DEGENERATIVE CHANGE IN THE SPINE. JOB NUMBER: [id number] MTDD
== END 2019-01-29 00:15 | disposition home or self-care (01) ==
LOC: ER 19:53
DX: K59.00 Constipation, unspecified (principal); R10.32 Left lower quadrant pain; E87.6 Hypokalemia
CPT/HCPCS: 74176; 80053; 81003; 83690; 85025; 96365; 99284; J7030